=== PATIENT | female | born 1995 | race Caucasian/White ===

== ENCOUNTER 2019-05-21 00:04 | Inpatient (IN) ==
[2019-05-21] MEDS ORDERED: BUTORPHANOL 2 MG/ML VIAL IV PRN (00:15)
[2019-05-21] MEDS ORDERED: ONDANSETRON 4 MG/2 ML VIAL IV PRN ×2 (00:15→19:59)
[2019-05-21 00:36] LABS: Basophils % 0.1 % (0.0-0.8); Eosinophils % 0.1 % (0.00-10.9); Hematocrit 30.4 VOL% (35.7-47.0); Hemoglobin 9.6 GM/DL (12.0-16.0); Immature Granulocytes Absolute 0.14 #; Lymphocytes # 2.5 10*3/uL (1.4-4.0); Lymphocytes % 18.4 % (21.3-54.2); Mean Corpuscular HGB Conc 31.6 GM/DL (32-36); Mean Corpuscular Volume 86.6 FL (87-102); Mean Platelet Volume 9.8 FL (9.6-12.0); Neutrophils % 72.4 % (38.7-73.9); Platelet Count 273 T/CUMM (130-400); Red Blood Count 3.51 MC/CUMM (3.8-5.5); Red Cell Distribution Width 13.5 % (9.3-17.3); White Blood Count 13.7 T/CUMM (4-12)
[2019-05-21 00:53] LABS: Albumin 2.4 G/DL (3.4-5.0); Bilirubin,Total 0.4 MG/DL (0.2-1.0); Calcium 8.3 MG/DL (8.5-10.1); Osmolality,Calculated 280.1 MOS/KG (273-304); Total Protein 6.2 G/DL (6.4-8.3)
[2019-05-21 01:08] LABS: Apearance,Urine Slightly Hazy (Clear); Bacteria,Urine Occasional /HPF (Few); Bilirubin,Urine Negative (Negative); Blood, Urine Negative (Negative); Glucose,Urine (UA) Negative (Negative); Ketones,Urine Negative (Negative); Mucus,Urine Occasional /LPF (Occasional); Nitrite,Urine Negative (Negative); Protein,Urine Negative; RBC,Urine 1 /HPF (0-4); Squamous Epithelial Cell,Urine Occasional /HPF (0-10); Urine Color Straw (Yellow); Urine Specific Gravity 1.003 (1.001-1.035); Urine Urobilinogen < 2.0 EU/DL (0.2-1.0); WBC,Urine 1 /HPF (0-6)
[2019-05-21] MEDS: LACTATED RINGERS 1,000 ML IV SCH ×3 (01:19→19:00)
[2019-05-21] MEDS ORDERED: OXYTOCIN/LR 20 UNIT/1,000 ML BAG IV SCH (01:30)
[2019-05-21] MEDS: AMPICILLIN INJ 2,000 MG in SODIUM CHLORIDE 0.9% 100 ML IV SCH ×2 (01:33→08:09)
[2019-05-21] MEDS ORDERED: ePHEDrine 50 MG/ML AMP IV PRN (01:59)
[2019-05-21] MEDS ORDERED: CITRIC ACID/SODIUM CITRATE 30 ML UDCUP PO ONE (01:59)
[2019-05-21] MEDS ORDERED: FAMOTIDINE 20 MG/2 ML VIAL IV ONE (01:59)
[2019-05-21] MEDS ORDERED: LACTATED RINGERS 1,000 ML IV SCH (02:00)
[2019-05-21] MEDS ORDERED: diphenhydrAMINE 50 MG/1 ML VIAL IV PRN (06:30)
[2019-05-21] MEDS: fentaNYL 2 MCG/ROPIV 0.2% EPID 100 ML EPIDURAL SCH ×2 (09:16→17:19)
[2019-05-21 10:32] LABS: Apearance,Urine CLEAR (Clear); Bacteria,Urine Occasional /HPF (Few); Bilirubin,Urine Negative (Negative); Blood, Urine Negative (Negative); Glucose,Urine (UA) Negative (Negative); Ketones,Urine Negative (Negative); Mucus,Urine Occasional /LPF (Occasional); Nitrite,Urine Negative (Negative); Protein,Urine Negative; RBC,Urine <1 /HPF (0-4); Urine Color Yellow (Yellow); Urine Specific Gravity 1.019 (1.001-1.035); Urine Urobilinogen < 2.0 EU/DL (0.2-1.0); WBC,Urine 2 /HPF (0-6)
[2019-05-21] MEDS: AMPICILLIN INJ 1,000 MG in SODIUM CHLORIDE 0.9% 100 ML IV SCH ×2 (12:03→16:03)
[2019-05-21] MEDS ORDERED: TRANEXAMIC ACID 1,000 MG/10 ML VIAL ONE (18:28)
[2019-05-21] MEDS ORDERED: miSOPROStoL 200 MCG TABLET ONE (18:28)
[2019-05-21] MEDS ORDERED: METHYLERGONOVINE 0.2 MG/1 ML AMP ONE (18:29)
[2019-05-21] MEDS ORDERED: CARBOPROST TROMETHAMINE 250 MCG/ML AMP IM ONE (18:29)
[2019-05-21] MEDS ORDERED: WITCH HAZEL PADS 100/JAR TOP PRN (19:59)
[2019-05-21] MEDS ORDERED: BENZOCAINE 20%/MENTHOL 0.5% SPRAY 56 GM CAN TOP PRN (19:59)
[2019-05-21] MEDS ORDERED: MEASLES/MUMPS/RUBELLA VACCINE 0.5 ML VIAL SUBCUT ONE (19:59)
[2019-05-21] MEDS ORDERED: LANOLIN 50% CREAM 0.3 OZ TUBE TOP PRN (19:59)
[2019-05-21] MEDS ORDERED: BISACODYL 10 MG SUPP RECTAL PRN (19:59)
[2019-05-21] MEDS ORDERED: ACETAMINOPHEN 325 MG TABLET PO PRN (19:59)
[2019-05-21] MEDS ORDERED: RHO(D) IMMUNE GLOBULIN 300 MCG SYRINGE IM ONE (19:59)
[2019-05-21] MEDS ORDERED: OXYTOCIN/LR 20 UNIT/1,000 ML BAG IV ONE (19:59)
[2019-05-21] MEDS ORDERED: DIPH/TET/ACEL PERT BOOSTER VACCINE 0.5 ML VIAL IM ONE (19:59)
[2019-05-21] MEDS ORDERED: HYDROCORTISONE 2.5% RECTAL CREAM 30 GM TUBE TOP PRN (19:59)
[2019-05-21] MEDS ORDERED: IBUPROFEN 800 MG TABLET PO PRN (19:59)
[2019-05-21] MEDS: oxyCODONE/ACETAMINOPHEN 5-325 MG TABLET PO PRN (21:11)
[2019-05-22 05:50] LABS: Basophils % 0.2 % (0.0-0.8); Eosinophils % 0.3 % (0.00-10.9); Hematocrit 27.7 VOL% (35.7-47.0); Hemoglobin 8.8 GM/DL (12.0-16.0); Immature Granulocytes % 0.7 %; Immature Granulocytes Absolute 0.11 #; Lymphocytes # 2.2 10*3/uL (1.4-4.0); Mean Corpuscular HGB Conc 31.8 GM/DL (32-36); Mean Corpuscular Volume 86.3 FL (87-102); Mean Platelet Volume 9.8 FL (9.6-12.0); Monocytes % 12.6 % (1.7-12.7); Neutrophils % 72.2 % (38.7-73.9); Platelet Count 203 T/CUMM (130-400); Red Blood Count 3.21 MC/CUMM (3.8-5.5); Red Cell Distribution Width 13.4 % (9.3-17.3); White Blood Count 15.5 T/CUMM (4-12)
[2019-05-22] MEDS: oxyCODONE/ACETAMINOPHEN 5-325 MG TABLET PO PRN ×3 (08:00→21:09)
[2019-05-22] MEDS: DOCUSATE SODIUM 100 MG CAPSULE PO SCH ×3 (08:00→21:06)
[2019-05-23] MEDS: oxyCODONE/ACETAMINOPHEN 5-325 MG TABLET PO PRN (07:51)
[2019-05-23 09:16] VITALS: BP 116/78
[2019-05-23] MEDS: DOCUSATE SODIUM 100 MG CAPSULE PO SCH (10:23)
== END 2019-05-23 11:45 | disposition home or self-care (01) | DRG 807 ==
LOC: N.LDOUT 00:04 → N.LD 00:08 → N.OB 22:20
PROVIDERS: ADMIT Obstetrics & Gynecology; ATTEND Obstetrics & Gynecology